=== PATIENT | female | born 1965 | race African-American/Black ===

== ENCOUNTER → 2020-02-20 | Day surgery (SDC) | payer MEDICAID ==
[~2020-02-20] VITALS: Ht 30.5 cm; Wt 0.5 kg
[~2020-02-20] MED LIST: KETOROLAC TROMETH 30 MG/ML 1ML VIAL IV ONE; KETOROLAC TROMETH 60MG/2ML VIAL ONE; MIDAZOLAM HCL 1MG/1ML-2 ML VIAL ONE; ONDANSETRON HCL 4 MG/2 ML VIAL IV PRN; ceFAZolin 1GM/50ML 50 ML IV ONE; ePHEDrine SULFATE 50 MG/ML AMP IV PRN; fentaNYL CITRATE 100 MCG/2 ML VL IV PRN; fentaNYL CITRATE 100 MCG/2 ML VL ONE; hydrALAZINE HCL 20 MG/ML VL IV PRN
[2020-02-20 08:38] VITALS: BP 134/71
== END | disposition home or self-care (01) ==
LOC: SUR 06:14
PROVIDERS: ATTEND Orthopaedic Surgery Adult Reconstructive Orthopaedic Surgery
DX: M24.661 Ankylosis, right knee (principal); Z98.890 Other specified postprocedural states; Z79.899 Other long term (current) drug therapy
CPT/HCPCS: 27570; 73560; 76000; J0690; J1885; J2250; J3010

== ENCOUNTER 2020-09-26 06:24 | Inpatient (IN) | payer MEDICAID ==
[~2020-09-26] VITALS: Ht 170.2 cm; Wt 77.5 kg
[2020-09-26] VITALS (15 sets, daily range): BP systolic 82–124; BP diastolic 46–76
[~2020-09-26 06:24] MED LIST changes: +ASPI-498 PO; +CHOL200021 PO; +CYAN50TA3 PO; +HYDR-4072 PO; -KETOROLAC TROMETH 30 MG/ML 1ML VIAL IV ONE; -KETOROLAC TROMETH 60MG/2ML VIAL ONE; +MELO1TAB56 PO; -MIDAZOLAM HCL 1MG/1ML-2 ML VIAL ONE; +MULTCAP45 PO; +OMEP20TA PO; -ONDANSETRON HCL 4 MG/2 ML VIAL IV PRN; +PRAV20TA3 PO; -ceFAZolin 1GM/50ML 50 ML IV ONE; -ePHEDrine SULFATE 50 MG/ML AMP IV PRN; -fentaNYL CITRATE 100 MCG/2 ML VL IV PRN; -fentaNYL CITRATE 100 MCG/2 ML VL ONE; -hydrALAZINE HCL 20 MG/ML VL IV PRN
[2020-09-26] MEDS ORDERED: ceFAZolin 1GM/50ML 100 ML IV ONE (06:47)
[2020-09-26] MEDS ORDERED: ACETAMINOPHEN IV 100 ML IV ONE (06:47)
[2020-09-26] MEDS ORDERED: TRANEXAMIC ACID 20 ML ONE (06:49)
[2020-09-26] MEDS ORDERED: BUPIVACAINE 0.25% INJ 50ML VIAL ONE (06:49)
[2020-09-26] MEDS ORDERED: VANCOMYCIN HCL 1000 MG VL ONE (06:50)
[2020-09-26] MEDS ORDERED: MORPHINE SULF PF 2 MG/2 ML SYRG ONE ×2 (06:53→07:22)
[2020-09-26] MEDS ORDERED: KETOROLAC TROMETH 30 MG/ML 1ML VIAL ONE (06:53)
[2020-09-26] MEDS ORDERED: TETRACAINE 1% INJ 2 ML VIAL IJ ONE (06:58)
[2020-09-26] MEDS: CELECOXIB 100 MG CAP ONE ×2 (07:13→07:15)
[2020-09-26] MEDS: PREGABALIN CAPSULE 75 MG CAP ONE ×2 (07:13→07:15)
[2020-09-26] MEDS ORDERED: ACETAMINOPHEN IV 1000 MG/100ML (10MG/ML) IV ONE (07:15)
[2020-09-26] MEDS ORDERED: CELECOXIB 100 MG CAP PO ONE (07:15)
[2020-09-26] MEDS ORDERED: PREGABALIN CAPSULE 75 MG CAP PO ONE (07:15)
[2020-09-26] MEDS ORDERED: MIDAZOLAM HCL 2MG/2ML 2ml VIAL (1mg/ml) ONE (07:22)
[2020-09-26] MEDS ORDERED: fentaNYL CITRATE 100 MCG/2 ML VL ONE (07:22)
[2020-09-26] MEDS ORDERED: PROPOFOL 10 MG/ML 20 ML IV ONE ×2 (07:53→08:39)
[2020-09-26] MEDS ORDERED: ONDANSETRON HCL 4 MG/2 ML VIAL ONE (09:07)
[2020-09-26] MEDS: ceFAZolin 1GM/50ML 50 ML IV SCH ×3 (09:15→22:54)
[2020-09-26] MEDS ORDERED: ACETAMINOPHEN 325 MG TAB PO PRN (09:15)
[2020-09-26] MEDS ORDERED: HYDROcodone-ACET 10/325MG TAB PO PRN (09:15)
[2020-09-26] MEDS ORDERED: MORPHINE SULFATE INJECTION 2 MG/ML SYRG IV PRN (09:15)
[2020-09-26] MEDS ORDERED: BISACODYL 5 MG EC TAB PO PRN (09:15)
[2020-09-26] MEDS ORDERED: NITROGLYCERIN 0.4 MG SL TAB SL PRN (09:15)
[2020-09-26] MEDS ORDERED: HYDROcodone-ACET 5/325MG TAB PO PRN (09:15)
[2020-09-26] MEDS ORDERED: HYDROmorphone HCL 2 MG/ML VL IV PRN ×2 (09:15→09:30)
[2020-09-26] MEDS ORDERED: ONDANSETRON HCL 4 MG/2 ML VIAL IV PRN ×2 (09:15→09:30)
[2020-09-26] MEDS: LACTATED RINGER'S 1,000 ML IV SCH ×2 (09:20→19:15)
[2020-09-26] MEDS ORDERED: NALOXONE HCL 0.4 MG/ML VIAL IV PRN (09:30)
[2020-09-26] MEDS ORDERED: KETOROLAC TROMETH 30 MG/ML 1ML VIAL IV PRN (09:30)
[2020-09-26] MEDS ORDERED: DexAMETHasone SOD PHOS 10MG/1ML VIAL INJ IV PRN (09:30)
[2020-09-26] MEDS ORDERED: diphenhdrAMINE HCL 50 MG/1 ML VL IV PRN (09:30)
[2020-09-26] MEDS ORDERED: NALBUPHINE HCL 10 MG/1ml INJECTION SUBCUT ONE (09:30)
[2020-09-26] MEDS: ENOXAPARIN SOD 40 MG/0.4 ML SYRINGE SC SCH (09:50)
[2020-09-26] MEDS: oxyCODONE ER 10 MG TAB PO SCH ×2 (09:54→22:54)
[2020-09-26] MEDS: MULTIPLE VITAMIN TAB PO SCH (10:00)
[2020-09-26] MEDS: PRAVASTATIN SODIUM 20 MG TAB PO SCH (10:00)
[2020-09-26] MEDS: CHOLECALCIFEROL (VITD3) 2,000 UNIT CAP/TAB PO SCH (10:00)
[2020-09-26] MEDS: PANTOPRAZOLE 40 MG TAB PO SCH (10:00)
[2020-09-26] MEDS: DOCUSATE SOD 100 MG CAP PO SCH ×2 (14:58→22:54)
[2020-09-26] MEDS: KETOROLAC TROMETH 30 MG/ML 1ML VIAL IV SCH ×2 (14:59→17:31)
[2020-09-26] MEDS: SODIUM CHLOR 0.9% PF (SALINE LOCK) 10ML VIAL/SYR IV SCH ×2 (15:02→22:00)
[2020-09-27] VITALS (14 sets, daily range): BP systolic 82–101; BP diastolic 42–54
[2020-09-27] MEDS: KETOROLAC TROMETH 30 MG/ML 1ML VIAL IV SCH ×3 (00:20→11:47)
[2020-09-27] MEDS: LACTATED RINGER'S 1,000 ML IV SCH (05:15)
[2020-09-27 06:00] LABS: Albumin 2.9 g/dL (3.4-5.0); Potassium 3.8 mmol/L (3.5-5.1)
[2020-09-27 06:02] LABS: BUN/Creatinine Ratio 20.9
[2020-09-27] MEDS: SODIUM CHLOR 0.9% PF (SALINE LOCK) 10ML VIAL/SYR IV SCH (06:03)
[2020-09-27 06:04] LABS: Bilirubin, Total 0.1 mg/dL (0.2-1.0); Total Protein 5.6 g/dL (6.4-8.2)
[2020-09-27] MEDS: DOCUSATE SOD 100 MG CAP PO SCH (09:32)
[2020-09-27] MEDS: MULTIPLE VITAMIN TAB PO SCH (09:32)
[2020-09-27] MEDS: PANTOPRAZOLE 40 MG TAB PO SCH (09:32)
[2020-09-27] MEDS: CHOLECALCIFEROL (VITD3) 2,000 UNIT CAP/TAB PO SCH (09:32)
[2020-09-27] MEDS: PRAVASTATIN SODIUM 20 MG TAB PO SCH (09:32)
[2020-09-27] MEDS: oxyCODONE ER 10 MG TAB PO SCH (09:33)
[2020-09-27] MEDS: ENOXAPARIN SOD 40 MG/0.4 ML SYRINGE SC SCH (09:33)
== END 2020-09-27 13:35 | disposition home or self-care (01) | DRG 302 ==
LOC: SUR 06:24 → TELE 09:11 → TELE-WESTW 11:20
PROVIDERS: ADMIT Orthopaedic Surgery Adult Reconstructive Orthopaedic Surgery; ATTEND Orthopaedic Surgery Adult Reconstructive Orthopaedic Surgery
PROC: 0SRV0JZ Replacement of Right Knee Joint, Tibial Surface with Synthetic Substitute, Open Approach (ICD-10-PCS; 2020-09-26)
PROC: 0SPV0JZ Removal of Synthetic Substitute from Right Knee Joint, Tibial Surface, Open Approach (ICD-10-PCS; principal; 2020-09-26 07:31)
DX: M24.661 Ankylosis, right knee (principal); E78.00 Pure hypercholesterolemia, unspecified; K21.9 Gastro-esophageal reflux disease without esophagitis; Z20.822 Contact with and (suspected) exposure to COVID-19
CPT/HCPCS: 36415; 73562; 80053; 85014; 85018; 86850; 86900; 86901; G0378; J0131; J0690; J1885; J2250; J2405; J2704; J3490; J7042